=== PATIENT | male | born 1950 ===

== ENCOUNTER 2018-01-17 08:18 | Day surgery (SDC) | payer OTHER ==
[~2018-01-17] VITALS: Ht 188 cm; Wt 95.2 kg
[2018-01-17] MEDS ORDERED: LEVSOD50 PO (08:51)
== END 2018-01-17 09:50 | disposition home or self-care (01) ==
LOC: ORSCSDS 08:18
PROVIDERS: Student in an Organized Health Care Education/Training Program
PROC: 0DBH8ZX Excision of Cecum, Via Natural or Artificial Opening Endoscopic, Diagnostic (ICD-10-PCS; principal; 2018-01-17 09:30)
DX: Z12.11 Encounter for screening for malignant neoplasm of colon (principal); D12.0 Benign neoplasm of cecum; K64.4 Residual hemorrhoidal skin tags; K64.8 Other hemorrhoids; K57.30 Diverticulosis of large intestine without perforation or abscess without bleeding; E03.9 Hypothyroidism, unspecified; Z87.891 Personal history of nicotine dependence; E66.9 Obesity, unspecified; Z68.30 Body mass index [BMI] 30.0-30.9, adult; Z79.899 Other long term (current) drug therapy
CPT/HCPCS: 88305; J7120

== ENCOUNTER → 2018-05-29 | Outpatient (CLI) | payer OTHER ==
[~2018-05-29] MED LIST: LEVSOD50 PO
== END | disposition home or self-care (01) ==
LOC: LAB SHORT 07:52 → PLD 07:52
DX: L60.2 Onychogryphosis (principal); B35.1 Tinea unguium
CPT/HCPCS: 88305; 88312

== ENCOUNTER 2020-09-03 02:48 | Emergency (ER) | payer OTHER ==
[~2020-09-03] VITALS: Ht 182.9 cm; Wt 88.9 kg
[2020-09-03] MEDS ORDERED: ASPI81CH PO (03:07)
[2020-09-03] MEDS ORDERED: OXYC5 PO (03:08)
[2020-09-03] MEDS ORDERED: NAPR220 PO (03:09)
== END 2020-09-03 04:16 | disposition home or self-care (01) ==
LOC: ER 02:48
DX: K59.00 Constipation, unspecified (principal); T40.2X5A Adverse effect of other opioids, initial encounter; R33.8 Other retention of urine; Z98.890 Other specified postprocedural states; Z87.891 Personal history of nicotine dependence
CPT/HCPCS: 51702; 51798; 96372; 99283-25; J2212

== ENCOUNTER 2023-12-12 08:09 | Day surgery (SDC) | payer OTHER ==
[~2023-12-12] VITALS: Ht 185.4 cm; Wt 95.2 kg
[2023-12-12] VITALS (19 sets, daily range): BP systolic 120–167; BP diastolic 77–112
[~2023-12-12 08:09] MED LIST changes: +ASPI81CH PO; +Lactated Ringer's 1,000 ML IV SCH; +NAPR220 PO; +OXYC5 PO
--- NOTE | 2023-12-12 08:59 | NUR ---
History, Chart, Medications and Allergies reviewed before start of procedure. Pre-Op teaching done. Pt verbalizes understanding. Patient confirms NPO status and agrees with scheduled surgery. Patient states colon prep results BROWN. Patient States Post-Procedure ride home has been arranged.
--- NOTE | 2023-12-12 09:31 | NUR ---
12/12/23 0931 Jeffrey More HISTORY, CHART, MEDICATIONS AND ALLERGIES REVIEWED BEFORE START OF PROCEDURE. PATIENT CONFIRMS NPO STATUS AND AGREES WITH SCHEDULED PROCEDURE. 3-LEAD EKG REVIEWED WITH PHYSICIAN PRIOR TO START OF PROCEDURE. MONITOR INTACT WITH CONTINUOUS PULSE OXIMETRY,CAPNOGRAPHY, 3-LEAD EKG, INTERMITTENT BP. SUPPLEMENTAL O2 TO BE TITRATED THROUGHOUT PROCEDURE TO MAINTAIN O2 SATURATION ABOVE 90%. PATIENT DETERMINED TO BE ASA APPROPRIATE FOR PROPOFOL SEDATION PRIOR TO START OF PROCEDURE BY
[2023-12-12] MEDS ORDERED: propofoL 20 ML IV ONE (09:54)
--- NOTE | 2023-12-12 10:02 | NUR ---
REPORT RECEIVED FROM MARI HOLT. VSS. PT ON RA. PT A&OX4. PT ABLE TO REPOSITION SELF IN BED. PT REQUESTING PO FLUIDS AND TOLERATING THEM WELL. PT DENIES PAIN, NAUSEA OR OTHER DISCOMFORTS.
== END 2023-12-12 10:20 | disposition home or self-care (01) ==
LOC: ORSCMMR 08:09 → ORD 10:00 → ORSCMMR 10:20
PROVIDERS: Internal Medicine Gastroenterology
PROC: 0DBN8ZX Excision of Sigmoid Colon, Via Natural or Artificial Opening Endoscopic, Diagnostic (ICD-10-PCS; principal; 2023-12-12 10:00)
DX: K62.5 Hemorrhage of anus and rectum (principal); Z86.010 Personal history of colon polyps; D12.5 Benign neoplasm of sigmoid colon; E03.9 Hypothyroidism, unspecified; Z79.899 Other long term (current) drug therapy
CPT/HCPCS: 88305; J2704; J7120